=== PATIENT | male | born 1940 | race Caucasian/White ===

== ENCOUNTER → 2023-04-03 | Day surgery (SDC) | payer OTHER ==
[~2023-04-03] MED LIST: BSS (NA/CA/MG/K) BALANCED SALT SOLUTION OPHTH SOLN 15 ML BOTTLE ONE; CARBACHOL 0.01% INTRA-OCULAR 1.5 ML VIAL ONE; EPINEPHrine/PF 1 MG/1 ML (1:1,000) AMPULE ONE; LIDOCAINE 1% P/F 10 MG/ML VIAL ONE; NEO/POLYMYX B SULF/DEXAMETH OPHTHALMIC 5ML BOTTLE ONE; TETRACAINE 0.5% OPHTH SOLN 2 ML BOTTLE ONE
== END | disposition home or self-care (01) ==
LOC: FASU 08:21
PROVIDERS: ATTEND Ophthalmology
PROC: 08RK3JZ Replacement of Left Lens with Synthetic Substitute, Percutaneous Approach (ICD-10-PCS; principal; 2023-04-03)
DX: Z53.8 Procedure and treatment not carried out for other reasons (principal); H26.8 Other specified cataract

== ENCOUNTER 2023-06-10 15:03 | Inpatient (IN) | payer OTHER ==
[2023-06-10 16:05] VITALS: BMI 26.6
[2023-06-10] MEDS ORDERED: LIDOCAINE 5% TOPICAL PATCH TP ONE (16:27)
[2023-06-10] MEDS ORDERED: LIDOCAINE 5% TOPICAL PATCH ONE (16:44)
[2023-06-10] MEDS ORDERED: ACETAMINOPHEN 325 MG TABLET (FP) PO ONE (16:59)
[2023-06-10] MEDS ORDERED: MAG HYDROX/AL HYDROX/SIMETH 30 ML UNIT-DOSE CUP PO ONE (16:59)
[2023-06-10] MEDS ORDERED: ACETAMINOPHEN 325 MG TABLET (FP) ONE (17:05)
[2023-06-10] MEDS ORDERED: MAG HYDROX/AL HYDROX/SIMETH 30 ML UNIT-DOSE CUP ONE (17:06)
[2023-06-10 17:56] LABS: BASO % 0.8 % (0-2.0); EOS % 6.1 % (0-4.5); HEMOGLOBIN 9.6 GM/dL (11.7-16.9); LYMPH % 15.2 % (8-40); MCH 30.2 pg (25.7-33.7); MCHC 33.1 g/dl (32.0-35.9); MEAN CELL VOLUME 91.2 fl (80-96); MEAN PLT VOLUME 7.7 fl (7.5-11.1); MONO % 7.5 % (3.8-10.2); NEUT % 70.4 % (42.8-82.8); PLATELET COUNT 240 10^3/uL (134-434); RBC 3.18 M/mm3 (4.00-5.60); RDW 15.5 % (11.9-15.9)
[2023-06-10] MEDS ORDERED: MINERAL OIL ENEMA 133 ML ENEMA PR ONE (18:25)
[2023-06-10] MEDS ORDERED: POLYETHYLENE GLYCOL (HEALTHYLAX) 3350 17 GM PACKET PO STA (18:25)
[2023-06-10 18:26] LABS: CHLORIDE 109 mmol/L (98-107); POTASSIUM 4.5 mmol/L (3.5-5.1); SODIUM 137 mmol/L (136-145)
[2023-06-10 18:27] LABS: CALCIUM 8.2 mg/dL (8.5-10.1)
[2023-06-10 18:28] LABS: ALBUMIN 2.8 g/dl (3.4-5.0); ANION GAP 11 MMOL/L (8-16); BLOOD UREA NITROGEN 57.8 mg/dL (7-18); CO2 17 mmol/L (21-32); GLUCOSE,RANDOM 118 mg/dL (74-106)
[2023-06-10 18:30] LABS: MAGNESIUM 1.8 mg/dL (1.8-2.4)
[2023-06-10 18:31] LABS: CREATININE 4.3 mg/dL (0.55-1.3); SGOT/AST 11 U/L (15-37); SGPT/ALT 26 U/L (13-61)
[2023-06-10 18:32] LABS: BILIRUBIN,TOTAL < 0.1 mg/dL (0.2-1); TOT PROT 7.3 g/dl (6.4-8.2)
[2023-06-10 18:35] LABS: ALK PHOS 100 U/L (45-117)
[2023-06-10] MEDS ORDERED: POLYETHYLENE GLYCOL (HEALTHYLAX) 3350 17 GM PACKET ONE (18:48)
[2023-06-10 19:00] LABS: EPI CELLS 24 /uL (0-25.1); HYALINE CASTS 2 /uL (0-3.1); PH,URINE 5.5 (5.0-8.0); URINE APPEARANCE TURBID; URINE BACTERIA >9,000 /uL (0-1359); URINE BILIRUBIN NEGATIVE (NEGATIVE); URINE COLOR ORANGE; URINE GLUCOSE (UA) NEGATIVE (NEGATIVE); URINE KETONE NEGATIVE (NEGATIVE); URINE LEUK ESTERASE 3+ (NEGATIVE); URINE NITRITE NEGATIVE (NEGATIVE); URINE PROTEIN 3+ (NEGATIVE); URINE UROBILINOGEN 0.2 mg/dL (0.2-1.0); URINE WBC 8317 /uL (0-25.8)
[2023-06-10 19:18] LABS: URINE RBC 2472 /uL (0-23.9); YEAST NONE SEEN (NEGATIVE)
[2023-06-10] MEDS ORDERED: CEFTRIAXONE 1 GM in DEXTROSE 5%-WATER - 100 ML IVPB ONE (19:19)
[2023-06-10] MEDS ORDERED: CEFTRIAXONE 1 GM/50 ML BAG ONE (19:36)
[2023-06-10] MEDS ORDERED: FAMOTIDINE 20 MG/50 ML IVPB 20 MG/50 ML MG IVPB ONE ×2 (19:51→20:03)
[2023-06-10] MEDS ORDERED: cloNIDine HCL 0.1 MG TABLET PO ONE (19:51)
[2023-06-10] MEDS ORDERED: DEXAMETHASONE SOD PHOSPHATE 10 MG/1 ML VIAL IVPUSH ONE (19:51)
[2023-06-10] MEDS ORDERED: DEXAMETHASONE SOD PHOSPHATE 10 MG/1 ML VIAL ONE (20:03)
[2023-06-10] MEDS ORDERED: cloNIDine HCL 0.1 MG TABLET ONE (20:03)
[2023-06-11] MEDS ORDERED: FUROSEMIDE 40 MG TABLET (FP) PO SCH (02:48)
[2023-06-11] MEDS ORDERED: LIDOCAINE 5% TOPICAL PATCH TP SCH ×2 (02:49→07:32)
[2023-06-11] MEDS ORDERED: LIDOCAINE TP SCH (02:49)
[2023-06-11] MEDS ORDERED: POLYETHYLENE GLYCOL (HEALTHYLAX) 3350 17 GM PACKET PO SCH (02:49)
[2023-06-11] MEDS ORDERED: PATIENT'S OWN MEDICATION (NON-FORMULARY) (Diclofenac Sodium [Voltaren] 100 GM Gel..Gram.) TP SCH (02:50)
[2023-06-11] MEDS: NIFEdipine E.R 60 MG TABLET PO SCH ×3 (04:08→22:02)
[2023-06-11] MEDS: SODIUM ZIRCONIUM CYCLOSILICATE (LOKELMA) 5 GM PACKET PO SCH ×2 (04:08→11:18)
[2023-06-11] MEDS: cloNIDine HCL 0.1 MG TABLET PO SCH ×3 (04:09→22:00)
[2023-06-11] MEDS: BACLOFEN 10 MG TABLET (FP) PO SCH ×2 (04:09→11:18)
[2023-06-11] MEDS: DOCUSATE SODIUM 100 MG CAPSULE (FP) PO SCH ×2 (04:09→22:01)
[2023-06-11] MEDS: ATORVASTATIN CA 20 MG TABLET (FP) PO SCH ×2 (04:10→22:01)
[2023-06-11] MEDS: FINASTERIDE 5 MG TABLET (FP) PO SCH ×2 (04:10→11:19)
[2023-06-11] MEDS: PANTOPRAZOLE 20 MG TABLET PO SCH ×2 (04:10→11:19)
[2023-06-11] MEDS: LABETALOL HCL 100 MG TABLET (FP) PO SCH ×3 (04:10→22:02)
[2023-06-11] MEDS: BISACODYL 5 MG TABLET.DR (FP) PO SCH ×2 (04:10→11:18)
[2023-06-11] MEDS: VITAMIN B COMP W-C 1 EA TABLET (NEPHRO-VITE) PO SCH ×2 (04:10→11:18)
[2023-06-11] MEDS: ASPIRIN 81 MG CHEWABLE TABLETS PO SCH ×2 (04:11→11:17)
[2023-06-11] MEDS: ASCORBIC ACID 500 MG TABLET (FP) PO SCH ×2 (04:11→11:19)
[2023-06-11] MEDS ORDERED: HEPARIN NA (PORCINE) 5,000 UNITS/ML 1ML VIAL SQ SCH (06:00)
[2023-06-11] MEDS ORDERED: MAGNESIUM CITRATE 300 ML BOTTLE PO ONE (07:00)
[2023-06-11] MEDS: ARTIFICIAL TEARS (POLYVINYL ALCOHOL) OPTH DROPS OU SCH ×4 (07:35→22:00)
[2023-06-11] MEDS: BETHANECHOL CHLORIDE 10 MG TABLET PO SCH ×4 (07:35→22:30)
[2023-06-11] MEDS: AMMONIUM LACTATE 12% LOTION 225 GM BOTTLE TP SCH ×3 (07:37→22:01)
[2023-06-11] MEDS: FERROUS GLUCONATE 324 MG TAB (FP) PO SCH ×2 (07:37→11:46)
[2023-06-11] MEDS: NYSTATIN 100,000 UNIT/GM TOPICAL CREAM 15 GM TUBE TP SCH ×3 (07:37→22:03)
[2023-06-11] MEDS ORDERED: SODIUM CHLORIDE 1,000 ML IV SCH (07:45)
[2023-06-11] MEDS: CITALOPRAM HYDROBROMIDE 20 MG TABLET PO SCH (08:27)
[2023-06-11] MEDS: SENNOSIDES 8.6MG TABLET (FP) PO SCH ×2 (08:27→22:02)
[2023-06-11 09:43] LABS: POTASSIUM 5.1 mmol/L (3.5-5.1)
[2023-06-11 09:47] LABS: ALBUMIN 2.7 g/dl (3.4-5.0); BLOOD UREA NITROGEN 55.8 mg/dL (7-18); CALCIUM 8.4 mg/dL (8.5-10.1)
[2023-06-11 09:49] LABS: PHOSPHOROUS 4.5 mg/dL (2.5-4.9)
[2023-06-11 09:51] LABS: BILIRUBIN,TOTAL 0.2 mg/dL (0.2-1)
[2023-06-11 09:54] LABS: HEMATOCRIT 27.7 % (35.4-49); HEMOGLOBIN 9.3 GM/dL (11.7-16.9); MCH 30.6 pg (25.7-33.7); MCHC 33.5 g/dl (32.0-35.9); MEAN CELL VOLUME 91.5 fl (80-96); MEAN PLT VOLUME 7.6 fl (7.5-11.1); PLATELET COUNT 251 10^3/uL (134-434); RBC 3.03 M/mm3 (4.00-5.60); RDW 15.3 % (11.9-15.9); WHITE BLOOD COUNT 6.9 K/mm3 (4.0-10.0)
[2023-06-11] MEDS ORDERED: ENOXAPARIN NA (PORCINE) 40 MG/0.4 ML DISP.SYRIN SQ SCH (10:00)
[2023-06-11] MEDS: CEFTRIAXONE 1 GM in DEXTROSE 5%-WATER - 50 ML IVPB SCH (11:39)
[2023-06-11] MEDS: TAMSULOSIN HCL 0.4 MG CAP PO SCH (11:45)
[2023-06-11] MEDS: POLYETHYLENE GLYCOL (HEALTHYLAX) 3350 17 GM PACKET PO SCH ×2 (11:46→22:01)
[2023-06-11] MEDS: LIDOCAINE 5% TOPICAL PATCH TP SCH (11:46)
[2023-06-11] MEDS: predniSONE 20 MG TABLET (UD) PO SCH (15:21)
[2023-06-11] MEDS ORDERED: LIDOCAINE PATCH REMOVAL MC SCH (22:00)
[2023-06-11] MEDS: SODIUM BICARBONATE 650 MG TABLET PO SCH (22:01)
[2023-06-12] MEDS: BETHANECHOL CHLORIDE 10 MG TABLET PO SCH ×4 (06:12→21:56)
[2023-06-12] MEDS: ARTIFICIAL TEARS (POLYVINYL ALCOHOL) OPTH DROPS OU SCH ×3 (06:25→21:50)
[2023-06-12 08:07] LABS: BASO % 0.8 % (0-2.0); EOS % 1.1 % (0-4.5); HEMATOCRIT 27.5 % (35.4-49); LYMPH % 15.6 % (8-40); MCH 30.6 pg (25.7-33.7); MCHC 32.8 g/dl (32.0-35.9); MEAN CELL VOLUME 93.1 fl (80-96); MEAN PLT VOLUME 7.6 fl (7.5-11.1); MONO % 5.7 % (3.8-10.2); NEUT % 76.8 % (42.8-82.8); PLATELET COUNT 290 10^3/uL (134-434); RBC 2.96 M/mm3 (4.00-5.60); RDW 15.4 % (11.9-15.9); WHITE BLOOD COUNT 8.1 K/mm3 (4.0-10.0)
[2023-06-12 08:41] LABS: POTASSIUM 5.1 mmol/L (3.5-5.1)
[2023-06-12 08:51] LABS: ALBUMIN 2.7 g/dl (3.4-5.0); BLOOD UREA NITROGEN 56.2 mg/dL (7-18); CALCIUM 8.7 mg/dL (8.5-10.1); MAGNESIUM 2.4 mg/dL (1.8-2.4)
[2023-06-12 08:54] LABS: CREATININE 3.7 mg/dL (0.55-1.3)
[2023-06-12 08:55] LABS: BILIRUBIN,TOTAL 0.2 mg/dL (0.2-1); TOT PROT 7.3 g/dl (6.4-8.2)
[2023-06-12] MEDS: POLYETHYLENE GLYCOL (HEALTHYLAX) 3350 17 GM PACKET PO SCH ×2 (11:00→21:52)
[2023-06-12] MEDS: SODIUM ZIRCONIUM CYCLOSILICATE (LOKELMA) 5 GM PACKET PO SCH (11:00)
[2023-06-12] MEDS: LABETALOL HCL 100 MG TABLET (FP) PO SCH ×2 (11:00→21:54)
[2023-06-12] MEDS: ASCORBIC ACID 500 MG TABLET (FP) PO SCH (11:01)
[2023-06-12] MEDS: TAMSULOSIN HCL 0.4 MG CAP PO SCH (11:01)
[2023-06-12] MEDS: PANTOPRAZOLE 20 MG TABLET PO SCH (11:01)
[2023-06-12] MEDS: ASPIRIN 81 MG CHEWABLE TABLETS PO SCH (11:01)
[2023-06-12] MEDS: VITAMIN B COMP W-C 1 EA TABLET (NEPHRO-VITE) PO SCH (11:02)
[2023-06-12] MEDS: BACLOFEN 10 MG TABLET (FP) PO SCH (11:02)
[2023-06-12] MEDS: BISACODYL 5 MG TABLET.DR (FP) PO SCH (11:02)
[2023-06-12] MEDS: CITALOPRAM HYDROBROMIDE 20 MG TABLET PO SCH (11:02)
[2023-06-12] MEDS: cloNIDine HCL 0.1 MG TABLET PO SCH ×2 (11:02→21:51)
[2023-06-12] MEDS: NIFEdipine E.R 60 MG TABLET PO SCH ×2 (11:02→21:54)
[2023-06-12] MEDS: predniSONE 20 MG TABLET (UD) PO SCH (11:02)
[2023-06-12] MEDS: SODIUM BICARBONATE 650 MG TABLET PO SCH ×2 (11:03→21:56)
[2023-06-12] MEDS: FERROUS GLUCONATE 324 MG TAB (FP) PO SCH (11:03)
[2023-06-12] MEDS: CEFTRIAXONE 1 GM in DEXTROSE 5%-WATER - 50 ML IVPB SCH (11:04)
[2023-06-12] MEDS: FINASTERIDE 5 MG TABLET (FP) PO SCH (11:04)
[2023-06-12] MEDS: LIDOCAINE 5% TOPICAL PATCH TP SCH (11:05)
[2023-06-12] MEDS: NYSTATIN 100,000 UNIT/GM TOPICAL CREAM 15 GM TUBE TP SCH ×2 (11:08→21:53)
[2023-06-12] MEDS: AMMONIUM LACTATE 12% LOTION 225 GM BOTTLE TP SCH ×2 (11:08→21:52)
[2023-06-12] MEDS: ALBUTEROL SO4 2.5/IPRATROPIUM 0.5 INH SOL 3 ML VIAL.NEB. NEB PRN (12:12)
[2023-06-12] MEDS: DOCUSATE SODIUM 100 MG CAPSULE (FP) PO SCH (21:51)
[2023-06-12] MEDS: ATORVASTATIN CA 20 MG TABLET (FP) PO SCH (21:52)
[2023-06-12] MEDS ORDERED: PSYLLIUM 5.85 GM PACKET PO SCH (22:00)
[2023-06-12] MEDS: SENNOSIDES 8.6MG TABLET (FP) PO SCH (23:33)
[2023-06-13] MEDS: ARTIFICIAL TEARS (POLYVINYL ALCOHOL) OPTH DROPS OU SCH ×3 (05:53→21:25)
[2023-06-13] MEDS: BETHANECHOL CHLORIDE 10 MG TABLET PO SCH ×3 (06:05→21:28)
[2023-06-13 08:17] LABS: HEMATOCRIT 27.5 % (35.4-49); MCH 30.5 pg (25.7-33.7); MCHC 32.8 g/dl (32.0-35.9); MEAN PLT VOLUME 7.5 fl (7.5-11.1); PLATELET COUNT 283 10^3/uL (134-434); POTASSIUM 4.5 mmol/L (3.5-5.1); RBC 2.96 M/mm3 (4.00-5.60); RDW 15.3 % (11.9-15.9); WHITE BLOOD COUNT 9.6 K/mm3 (4.0-10.0)
[2023-06-13 08:22] LABS: ALBUMIN 2.7 g/dl (3.4-5.0); BLOOD UREA NITROGEN 56.8 mg/dL (7-18); CALCIUM 8.1 mg/dL (8.5-10.1); MAGNESIUM 2.1 mg/dL (1.8-2.4)
[2023-06-13 08:25] LABS: CREATININE 3.4 mg/dL (0.55-1.3); PHOSPHOROUS 3.7 mg/dL (2.5-4.9)
[2023-06-13 08:27] LABS: BILIRUBIN,TOTAL 0.2 mg/dL (0.2-1); TOT PROT 7.1 g/dl (6.4-8.2)
[2023-06-13] MEDS: TAMSULOSIN HCL 0.4 MG CAP PO SCH (08:44)
[2023-06-13] MEDS: PANTOPRAZOLE 20 MG TABLET PO SCH (09:00)
[2023-06-13] MEDS: LABETALOL HCL 100 MG TABLET (FP) PO SCH ×2 (09:01→21:27)
[2023-06-13] MEDS: FINASTERIDE 5 MG TABLET (FP) PO SCH (09:01)
[2023-06-13] MEDS: predniSONE 20 MG TABLET (UD) PO SCH (09:02)
[2023-06-13] MEDS: BISACODYL 5 MG TABLET.DR (FP) PO SCH (09:02)
[2023-06-13] MEDS: CITALOPRAM HYDROBROMIDE 20 MG TABLET PO SCH (09:02)
[2023-06-13] MEDS: SODIUM BICARBONATE 650 MG TABLET PO SCH ×2 (09:03→21:26)
[2023-06-13] MEDS: FERROUS GLUCONATE 324 MG TAB (FP) PO SCH (09:04)
[2023-06-13] MEDS: VITAMIN B COMP W-C 1 EA TABLET (NEPHRO-VITE) PO SCH (09:04)
[2023-06-13] MEDS: BACLOFEN 10 MG TABLET (FP) PO SCH (09:05)
[2023-06-13] MEDS: NIFEdipine E.R 60 MG TABLET PO SCH ×2 (09:05→21:26)
[2023-06-13] MEDS: ASCORBIC ACID 500 MG TABLET (FP) PO SCH (09:06)
[2023-06-13] MEDS: cloNIDine HCL 0.1 MG TABLET PO SCH ×2 (09:06→21:26)
[2023-06-13] MEDS: SODIUM ZIRCONIUM CYCLOSILICATE (LOKELMA) 5 GM PACKET PO SCH (09:07)
[2023-06-13] MEDS: POLYETHYLENE GLYCOL (HEALTHYLAX) 3350 17 GM PACKET PO SCH ×3 (09:07→21:39)
[2023-06-13] MEDS: AMMONIUM LACTATE 12% LOTION 225 GM BOTTLE TP SCH ×2 (09:08→21:29)
[2023-06-13] MEDS: CEFTRIAXONE 1 GM in DEXTROSE 5%-WATER - 50 ML IVPB SCH (09:08)
[2023-06-13] MEDS: LIDOCAINE 5% TOPICAL PATCH TP SCH (09:12)
[2023-06-13] MEDS: CLOTRIMAZOLE/BETAMET DIPROP 15 GM TUBE TP SCH ×3 (09:12→21:30)
[2023-06-13] MEDS: NYSTATIN 100,000 UNIT/GM TOPICAL CREAM 15 GM TUBE TP SCH ×2 (09:13→21:30)
[2023-06-13] MEDS: ASPIRIN 81 MG CHEWABLE TABLETS PO SCH (09:18)
[2023-06-13] MEDS: SENNOSIDES 8.6MG TABLET (FP) PO SCH ×3 (09:38→21:39)
[2023-06-13 09:50] LABS: ANISOCYTOSIS 0; HELMET CELLS 0; HOWELL-JOLLY BODIES 0; MACROCYTOSIS 0; OVALOCYTE 0; ROULEAU 0; SICKELED CELLS 0; TARGET CELLS 0; TEAR DROP CELLS 0; TOXIC GRANULATION 0
[2023-06-13] MEDS: PIPERACILLIN/TAZOB 2.25 GM 2.25 GM in DEXTROSE 5%-WATER - 50 ML IVPB SCH ×4 (11:02→21:24)
[2023-06-13] MEDS: SALICYLIC ACID TP SCH (19:04)
[2023-06-13] MEDS: ATORVASTATIN CA 20 MG TABLET (FP) PO SCH (21:27)
[2023-06-13 22:09] LABS: ANTIGLOMERULAR BASEMENT MEN.AB <0.2 units (0.0-0.9)
[2023-06-14] MEDS: PIPERACILLIN/TAZOB 2.25 GM 2.25 GM in DEXTROSE 5%-WATER - 50 ML IVPB SCH (02:03)
[2023-06-14] MEDS: ARTIFICIAL TEARS (POLYVINYL ALCOHOL) OPTH DROPS OU SCH ×3 (06:16→22:04)
[2023-06-14] MEDS: CLOTRIMAZOLE/BETAMET DIPROP 15 GM TUBE TP SCH ×3 (06:17→22:06)
[2023-06-14] MEDS: BETHANECHOL CHLORIDE 10 MG TABLET PO SCH ×3 (06:17→22:08)
[2023-06-14 08:03] LABS: HEMATOCRIT 25.6 % (35.4-49); HEMOGLOBIN 8.6 GM/dL (11.7-16.9); MCH 30.6 pg (25.7-33.7); MCHC 33.6 g/dl (32.0-35.9); MEAN CELL VOLUME 91.1 fl (80-96); MEAN PLT VOLUME 6.9 fl (7.5-11.1); PLATELET COUNT 279 10^3/uL (134-434); RBC 2.81 M/mm3 (4.00-5.60); RDW 15.4 % (11.9-15.9); WHITE BLOOD COUNT 11.2 K/mm3 (4.0-10.0)
[2023-06-14 08:55] LABS: CHLORIDE 107 mmol/L (98-107); POTASSIUM 4.5 mmol/L (3.5-5.1); SODIUM 136 mmol/L (136-145)
[2023-06-14 08:57] LABS: ALBUMIN 2.7 g/dl (3.4-5.0); ANION GAP 8 MMOL/L (8-16); BLOOD UREA NITROGEN 61.1 mg/dL (7-18); CO2 21 mmol/L (21-32); GLUCOSE,RANDOM 95 mg/dL (74-106); MAGNESIUM 2.1 mg/dL (1.8-2.4)
[2023-06-14 09:01] LABS: CREATININE 3.4 mg/dL (0.55-1.3); PHOSPHOROUS 3.5 mg/dL (2.5-4.9); SGOT/AST 13 U/L (15-37); SGPT/ALT 30 U/L (13-61)
[2023-06-14 09:02] LABS: BILIRUBIN,TOTAL < 0.1 mg/dL (0.2-1); TOT PROT 6.8 g/dl (6.4-8.2)
[2023-06-14 09:03] LABS: ALK PHOS 76 U/L (45-117)
[2023-06-14] MEDS: TAMSULOSIN HCL 0.4 MG CAP PO SCH (09:03)
[2023-06-14] MEDS: cloNIDine HCL 0.1 MG TABLET PO SCH ×2 (09:10→22:05)
[2023-06-14] MEDS: ASPIRIN 81 MG CHEWABLE TABLETS PO SCH (09:10)
[2023-06-14] MEDS: LABETALOL HCL 100 MG TABLET (FP) PO SCH ×2 (09:10→22:07)
[2023-06-14] MEDS: BISACODYL 5 MG TABLET.DR (FP) PO SCH (09:10)
[2023-06-14] MEDS: FINASTERIDE 5 MG TABLET (FP) PO SCH (09:11)
[2023-06-14] MEDS: predniSONE 20 MG TABLET (UD) PO SCH (09:11)
[2023-06-14] MEDS: LIDOCAINE 5% TOPICAL PATCH TP SCH (09:11)
[2023-06-14] MEDS: SODIUM BICARBONATE 650 MG TABLET PO SCH ×2 (09:11→22:07)
[2023-06-14] MEDS: ASCORBIC ACID 500 MG TABLET (FP) PO SCH (09:11)
[2023-06-14] MEDS: NIFEdipine E.R 60 MG TABLET PO SCH ×2 (09:11→22:08)
[2023-06-14] MEDS: CITALOPRAM HYDROBROMIDE 20 MG TABLET PO SCH (09:11)
[2023-06-14] MEDS: BACLOFEN 10 MG TABLET (FP) PO SCH (09:11)
[2023-06-14] MEDS: PANTOPRAZOLE 20 MG TABLET PO SCH (09:11)
[2023-06-14] MEDS: FERROUS GLUCONATE 324 MG TAB (FP) PO SCH (09:12)
[2023-06-14] MEDS: SODIUM ZIRCONIUM CYCLOSILICATE (LOKELMA) 5 GM PACKET PO SCH (09:12)
[2023-06-14] MEDS: POLYETHYLENE GLYCOL (HEALTHYLAX) 3350 17 GM PACKET PO SCH ×2 (09:12→22:05)
[2023-06-14] MEDS: VITAMIN B COMP W-C 1 EA TABLET (NEPHRO-VITE) PO SCH (09:14)
[2023-06-14] MEDS: AMMONIUM LACTATE 12% LOTION 225 GM BOTTLE TP SCH ×2 (09:25→22:05)
[2023-06-14] MEDS: NYSTATIN 100,000 UNIT/GM TOPICAL CREAM 15 GM TUBE TP SCH ×2 (09:25→22:07)
[2023-06-14 09:33] LABS: ANISOCYTOSIS 1+; MACROCYTOSIS 0
[2023-06-14] MEDS: ALBUTEROL SO4 2.5/IPRATROPIUM 0.5 INH SOL 3 ML VIAL.NEB. NEB PRN (18:15)
[2023-06-14] MEDS: ATORVASTATIN CA 20 MG TABLET (FP) PO SCH (22:06)
[2023-06-14] MEDS: SENNOSIDES 8.6MG TABLET (FP) PO SCH (22:08)
[2023-06-15] MEDS: CLOTRIMAZOLE/BETAMET DIPROP 15 GM TUBE TP SCH ×3 (05:55→22:50)
[2023-06-15] MEDS: ARTIFICIAL TEARS (POLYVINYL ALCOHOL) OPTH DROPS OU SCH ×3 (05:55→22:50)
[2023-06-15] MEDS: BETHANECHOL CHLORIDE 10 MG TABLET PO SCH ×3 (05:56→22:49)
[2023-06-15] MEDS: TAMSULOSIN HCL 0.4 MG CAP PO SCH (08:02)
[2023-06-15] MEDS: LABETALOL HCL 100 MG TABLET (FP) PO SCH ×2 (09:15→22:48)
[2023-06-15] MEDS: SODIUM BICARBONATE 650 MG TABLET PO SCH ×2 (09:15→22:48)
[2023-06-15] MEDS: FINASTERIDE 5 MG TABLET (FP) PO SCH (09:15)
[2023-06-15] MEDS: NIFEdipine E.R 60 MG TABLET PO SCH ×2 (09:15→22:48)
[2023-06-15] MEDS: VITAMIN B COMP W-C 1 EA TABLET (NEPHRO-VITE) PO SCH (09:15)
[2023-06-15] MEDS: PANTOPRAZOLE 20 MG TABLET PO SCH (09:16)
[2023-06-15] MEDS: BISACODYL 5 MG TABLET.DR (FP) PO SCH (09:16)
[2023-06-15] MEDS: cloNIDine HCL 0.1 MG TABLET PO SCH ×2 (09:16→22:48)
[2023-06-15] MEDS: ASPIRIN 81 MG CHEWABLE TABLETS PO SCH (09:16)
[2023-06-15] MEDS: CITALOPRAM HYDROBROMIDE 20 MG TABLET PO SCH (09:16)
[2023-06-15] MEDS: predniSONE 20 MG TABLET (UD) PO SCH (09:16)
[2023-06-15] MEDS: BACLOFEN 10 MG TABLET (FP) PO SCH (09:17)
[2023-06-15] MEDS: ASCORBIC ACID 500 MG TABLET (FP) PO SCH (09:17)
[2023-06-15] MEDS: POLYETHYLENE GLYCOL (HEALTHYLAX) 3350 17 GM PACKET PO SCH ×2 (09:18→22:49)
[2023-06-15] MEDS: SODIUM ZIRCONIUM CYCLOSILICATE (LOKELMA) 5 GM PACKET PO SCH (09:18)
[2023-06-15] MEDS: LIDOCAINE 5% TOPICAL PATCH TP SCH (09:18)
[2023-06-15] MEDS: FERROUS GLUCONATE 324 MG TAB (FP) PO SCH (09:19)
[2023-06-15 09:47] LABS: HEMOGLOBIN 8.9 GM/dL (11.7-16.9); MCH 30.4 pg (25.7-33.7); MCHC 32.9 g/dl (32.0-35.9); MEAN CELL VOLUME 92.4 fl (80-96); MEAN PLT VOLUME 7.6 fl (7.5-11.1); PLATELET COUNT 290 10^3/uL (134-434); RBC 2.92 M/mm3 (4.00-5.60); RDW 15.1 % (11.9-15.9); WHITE BLOOD COUNT 12.2 K/mm3 (4.0-10.0)
[2023-06-15] MEDS: NYSTATIN 100,000 UNIT/GM TOPICAL CREAM 15 GM TUBE TP SCH ×2 (09:55→22:50)
[2023-06-15] MEDS: AMMONIUM LACTATE 12% LOTION 225 GM BOTTLE TP SCH ×2 (09:55→22:50)
[2023-06-15 10:17] LABS: POTASSIUM 4.2 mmol/L (3.5-5.1)
[2023-06-15 10:19] LABS: ALBUMIN 2.8 g/dl (3.4-5.0); CALCIUM 8.4 mg/dL (8.5-10.1); MAGNESIUM 2.1 mg/dL (1.8-2.4)
[2023-06-15 10:20] LABS: BLOOD UREA NITROGEN 68.4 mg/dL (7-18)
[2023-06-15 10:22] LABS: PHOSPHOROUS 4.3 mg/dL (2.5-4.9)
[2023-06-15 10:24] LABS: BILIRUBIN,TOTAL 0.2 mg/dL (0.2-1)
[2023-06-15 10:26] LABS: CREATININE 3.6 mg/dL (0.55-1.3)
[2023-06-15 10:31] LABS: ANISOCYTOSIS 1+; MACROCYTOSIS 0
[2023-06-15] MEDS ORDERED: PIPERACILLIN/TAZOBACTAM 2.25 GM VIAL IVPB ONE (17:41)
[2023-06-15] MEDS: PIPERACILLIN/TAZOB 2.25 GM 2.25 GM in DEXTROSE 5%-WATER - 50 ML IVPB SCH (18:08)
[2023-06-15] MEDS: ATORVASTATIN CA 20 MG TABLET (FP) PO SCH (22:48)
[2023-06-15] MEDS: SENNOSIDES 8.6MG TABLET (FP) PO SCH (22:48)
[2023-06-15] MEDS: HEPARIN NA (PORCINE) 5,000 UNITS/ML 1ML VIAL SQ SCH (22:49)
[2023-06-15] MEDS ORDERED: ACETAMINOPHEN 325 MG TABLET (FP) PO ONE (23:31)
[2023-06-16] MEDS: PIPERACILLIN/TAZOB 2.25 GM 2.25 GM in DEXTROSE 5%-WATER - 50 ML IVPB SCH ×3 (02:49→17:47)
[2023-06-16] MEDS: BETHANECHOL CHLORIDE 10 MG TABLET PO SCH ×3 (06:58→22:39)
[2023-06-16] MEDS: CLOTRIMAZOLE/BETAMET DIPROP 15 GM TUBE TP SCH ×3 (06:59→22:46)
[2023-06-16] MEDS: ARTIFICIAL TEARS (POLYVINYL ALCOHOL) OPTH DROPS OU SCH ×3 (06:59→22:47)
[2023-06-16 08:59] LABS: HEMATOCRIT 25.7 % (35.4-49); HEMOGLOBIN 8.5 GM/dL (11.7-16.9); MCH 30.6 pg (25.7-33.7); MCHC 33.1 g/dl (32.0-35.9); MEAN CELL VOLUME 92.3 fl (80-96); MEAN PLT VOLUME 7.3 fl (7.5-11.1); PLATELET COUNT 302 10^3/uL (134-434); RBC 2.79 M/mm3 (4.00-5.60); RDW 15.3 % (11.9-15.9); WHITE BLOOD COUNT 12.3 K/mm3 (4.0-10.0)
[2023-06-16 09:15] LABS: POTASSIUM 4.9 mmol/L (3.5-5.1)
[2023-06-16 09:18] LABS: ALBUMIN 2.8 g/dl (3.4-5.0); BLOOD UREA NITROGEN 66.5 mg/dL (7-18)
[2023-06-16 09:19] LABS: MAGNESIUM 2.1 mg/dL (1.8-2.4)
[2023-06-16 09:22] LABS: CREATININE 3.7 mg/dL (0.55-1.3); PHOSPHOROUS 4.6 mg/dL (2.5-4.9)
[2023-06-16 09:23] LABS: BILIRUBIN,TOTAL 0.4 mg/dL (0.2-1); TOT PROT 6.7 g/dl (6.4-8.2)
[2023-06-16 10:04] LABS: ANISOCYTOSIS 0; MACROCYTOSIS 1+
[2023-06-16] MEDS: LIDOCAINE 5% TOPICAL PATCH TP SCH (10:51)
[2023-06-16] MEDS: POLYETHYLENE GLYCOL (HEALTHYLAX) 3350 17 GM PACKET PO SCH ×2 (10:51→22:39)
[2023-06-16] MEDS: SODIUM ZIRCONIUM CYCLOSILICATE (LOKELMA) 5 GM PACKET PO SCH (10:51)
[2023-06-16] MEDS: BACLOFEN 10 MG TABLET (FP) PO SCH (10:52)
[2023-06-16] MEDS: BISACODYL 5 MG TABLET.DR (FP) PO SCH (10:52)
[2023-06-16] MEDS: NIFEdipine E.R 60 MG TABLET PO SCH ×2 (10:52→22:39)
[2023-06-16] MEDS: LABETALOL HCL 100 MG TABLET (FP) PO SCH ×2 (10:52→22:39)
[2023-06-16] MEDS: VITAMIN B COMP W-C 1 EA TABLET (NEPHRO-VITE) PO SCH (10:52)
[2023-06-16] MEDS: CITALOPRAM HYDROBROMIDE 20 MG TABLET PO SCH (10:53)
[2023-06-16] MEDS: ASPIRIN 81 MG CHEWABLE TABLETS PO SCH (10:54)
[2023-06-16] MEDS: ASCORBIC ACID 500 MG TABLET (FP) PO SCH (10:54)
[2023-06-16] MEDS: SODIUM BICARBONATE 650 MG TABLET PO SCH ×2 (10:54→22:39)
[2023-06-16] MEDS: FINASTERIDE 5 MG TABLET (FP) PO SCH (10:54)
[2023-06-16] MEDS: cloNIDine HCL 0.1 MG TABLET PO SCH ×2 (10:54→22:39)
[2023-06-16] MEDS: PANTOPRAZOLE 20 MG TABLET PO SCH (10:55)
[2023-06-16] MEDS: TAMSULOSIN HCL 0.4 MG CAP PO SCH (10:55)
[2023-06-16] MEDS: predniSONE 20 MG TABLET (UD) PO SCH (10:55)
[2023-06-16] MEDS: HEPARIN NA (PORCINE) 5,000 UNITS/ML 1ML VIAL SQ SCH ×2 (11:02→22:40)
[2023-06-16] MEDS: AMMONIUM LACTATE 12% LOTION 225 GM BOTTLE TP SCH ×2 (11:06→22:47)
[2023-06-16] MEDS: NYSTATIN 100,000 UNIT/GM TOPICAL CREAM 15 GM TUBE TP SCH ×2 (11:06→22:46)
[2023-06-16] MEDS: FERROUS GLUCONATE 324 MG TAB (FP) PO SCH (11:18)
[2023-06-16] MEDS: SIMETHICONE 80 MG TAB.CHEW (FP) PO PRN (20:20)
[2023-06-16] MEDS: ATORVASTATIN CA 20 MG TABLET (FP) PO SCH (22:39)
[2023-06-16] MEDS: SENNOSIDES 8.6MG TABLET (FP) PO SCH (22:39)
[2023-06-17] MEDS: PIPERACILLIN/TAZOB 2.25 GM 2.25 GM in DEXTROSE 5%-WATER - 50 ML IVPB SCH ×2 (02:56→09:17)
[2023-06-17] MEDS: SIMETHICONE 80 MG TAB.CHEW (FP) PO PRN (03:09)
[2023-06-17] MEDS: ARTIFICIAL TEARS (POLYVINYL ALCOHOL) OPTH DROPS OU SCH ×3 (06:33→22:02)
[2023-06-17] MEDS: CLOTRIMAZOLE/BETAMET DIPROP 15 GM TUBE TP SCH ×3 (06:34→22:01)
[2023-06-17] MEDS: BETHANECHOL CHLORIDE 10 MG TABLET PO SCH ×3 (07:08→22:00)
[2023-06-17] MEDS: TAMSULOSIN HCL 0.4 MG CAP PO SCH (08:44)
[2023-06-17] MEDS: HEPARIN NA (PORCINE) 5,000 UNITS/ML 1ML VIAL SQ SCH ×2 (09:11→22:00)
[2023-06-17] MEDS: cloNIDine HCL 0.1 MG TABLET PO SCH ×2 (09:13→22:00)
[2023-06-17] MEDS: ASPIRIN 81 MG CHEWABLE TABLETS PO SCH (09:13)
[2023-06-17] MEDS: CITALOPRAM HYDROBROMIDE 20 MG TABLET PO SCH (09:14)
[2023-06-17] MEDS: LABETALOL HCL 100 MG TABLET (FP) PO SCH ×2 (09:14→22:01)
[2023-06-17] MEDS: BACLOFEN 10 MG TABLET (FP) PO SCH (09:15)
[2023-06-17] MEDS: BISACODYL 5 MG TABLET.DR (FP) PO SCH (09:15)
[2023-06-17] MEDS: PANTOPRAZOLE 20 MG TABLET PO SCH (09:15)
[2023-06-17] MEDS: ASCORBIC ACID 500 MG TABLET (FP) PO SCH (09:15)
[2023-06-17] MEDS: predniSONE 20 MG TABLET (UD) PO SCH (09:15)
[2023-06-17] MEDS: FINASTERIDE 5 MG TABLET (FP) PO SCH (09:15)
[2023-06-17] MEDS: NIFEdipine E.R 60 MG TABLET PO SCH ×2 (09:15→22:00)
[2023-06-17] MEDS: POLYETHYLENE GLYCOL (HEALTHYLAX) 3350 17 GM PACKET PO SCH ×2 (09:16→21:59)
[2023-06-17] MEDS: FERROUS GLUCONATE 324 MG TAB (FP) PO SCH (09:16)
[2023-06-17] MEDS: VITAMIN B COMP W-C 1 EA TABLET (NEPHRO-VITE) PO SCH (09:16)
[2023-06-17] MEDS: SODIUM ZIRCONIUM CYCLOSILICATE (LOKELMA) 5 GM PACKET PO SCH (09:16)
[2023-06-17] MEDS: SODIUM BICARBONATE 650 MG TABLET PO SCH ×2 (09:16→22:00)
[2023-06-17] MEDS: LIDOCAINE 5% TOPICAL PATCH TP SCH (09:17)
[2023-06-17 09:34] LABS: HEMATOCRIT 25.3 % (35.4-49); HEMOGLOBIN 8.1 GM/dL (11.7-16.9); MCH 29.9 pg (25.7-33.7); MCHC 32.3 g/dl (32.0-35.9); MEAN CELL VOLUME 92.7 fl (80-96); MEAN PLT VOLUME 7.3 fl (7.5-11.1); PLATELET COUNT 314 10^3/uL (134-434); RBC 2.73 M/mm3 (4.00-5.60); RDW 14.9 % (11.9-15.9); WHITE BLOOD COUNT 15.4 K/mm3 (4.0-10.0)
[2023-06-17] MEDS: AMMONIUM LACTATE 12% LOTION 225 GM BOTTLE TP SCH ×2 (09:56→22:02)
[2023-06-17] MEDS: NYSTATIN 100,000 UNIT/GM TOPICAL CREAM 15 GM TUBE TP SCH ×2 (09:57→22:01)
[2023-06-17 10:06] LABS: POTASSIUM 4.7 mmol/L (3.5-5.1)
[2023-06-17 10:08] LABS: ALBUMIN 2.6 g/dl (3.4-5.0); BLOOD UREA NITROGEN 91.1 mg/dL (7-18); CALCIUM 7.9 mg/dL (8.5-10.1)
[2023-06-17 10:10] LABS: MAGNESIUM 1.9 mg/dL (1.8-2.4)
[2023-06-17 10:11] LABS: CREATININE 3.5 mg/dL (0.55-1.3)
[2023-06-17 10:12] LABS: PHOSPHOROUS 3.8 mg/dL (2.5-4.9)
[2023-06-17 10:13] LABS: BILIRUBIN,TOTAL 0.2 mg/dL (0.2-1); TOT PROT 6.5 g/dl (6.4-8.2)
[2023-06-17 11:42] LABS: ANISOCYTOSIS 0; MACROCYTOSIS 1+
[2023-06-17 17:08] LABS: ATYPICAL pANCA <1:20 titer (Neg:<1:20); C-ANCA <1:20 titer (Neg:<1:20)
[2023-06-17] MEDS: AMOX TR/POT CLAV 250MG/125MG TABLETS PO SCH (17:27)
[2023-06-17] MEDS: SENNOSIDES 8.6MG TABLET (FP) PO SCH (22:00)
[2023-06-17] MEDS: ATORVASTATIN CA 20 MG TABLET (FP) PO SCH (22:02)
[2023-06-18] MEDS: ARTIFICIAL TEARS (POLYVINYL ALCOHOL) OPTH DROPS OU SCH ×3 (06:25→21:09)
[2023-06-18] MEDS: BETHANECHOL CHLORIDE 10 MG TABLET PO SCH ×3 (06:26→21:22)
[2023-06-18] MEDS: CLOTRIMAZOLE/BETAMET DIPROP 15 GM TUBE TP SCH ×3 (06:26→21:19)
[2023-06-18] MEDS: AMOX TR/POT CLAV 250MG/125MG TABLETS PO SCH (09:11)
[2023-06-18] MEDS: TAMSULOSIN HCL 0.4 MG CAP PO SCH (09:12)
[2023-06-18] MEDS: LIDOCAINE 5% TOPICAL PATCH TP SCH (10:21)
[2023-06-18] MEDS: POLYETHYLENE GLYCOL (HEALTHYLAX) 3350 17 GM PACKET PO SCH ×2 (10:24→21:16)
[2023-06-18] MEDS: SODIUM ZIRCONIUM CYCLOSILICATE (LOKELMA) 5 GM PACKET PO SCH (10:24)
[2023-06-18] MEDS: LABETALOL HCL 100 MG TABLET (FP) PO SCH ×2 (10:24→21:15)
[2023-06-18] MEDS: predniSONE 20 MG TABLET (UD) PO SCH (10:24)
[2023-06-18] MEDS: ASPIRIN 81 MG CHEWABLE TABLETS PO SCH (10:24)
[2023-06-18] MEDS: CITALOPRAM HYDROBROMIDE 20 MG TABLET PO SCH (10:25)
[2023-06-18] MEDS: cloNIDine HCL 0.1 MG TABLET PO SCH ×2 (10:25→21:14)
[2023-06-18] MEDS: PANTOPRAZOLE 20 MG TABLET PO SCH (10:25)
[2023-06-18] MEDS: VITAMIN B COMP W-C 1 EA TABLET (NEPHRO-VITE) PO SCH (10:25)
[2023-06-18] MEDS: SODIUM BICARBONATE 650 MG TABLET PO SCH ×2 (10:25→21:14)
[2023-06-18] MEDS: BISACODYL 5 MG TABLET.DR (FP) PO SCH (10:25)
[2023-06-18] MEDS: BACLOFEN 10 MG TABLET (FP) PO SCH (10:25)
[2023-06-18] MEDS: FINASTERIDE 5 MG TABLET (FP) PO SCH (10:25)
[2023-06-18] MEDS: ASCORBIC ACID 500 MG TABLET (FP) PO SCH (10:26)
[2023-06-18] MEDS: HEPARIN NA (PORCINE) 5,000 UNITS/ML 1ML VIAL SQ SCH ×2 (10:26→21:16)
[2023-06-18] MEDS: NIFEdipine E.R 60 MG TABLET PO SCH ×2 (10:26→21:15)
[2023-06-18] MEDS: FERROUS GLUCONATE 324 MG TAB (FP) PO SCH (10:28)
[2023-06-18] MEDS: SIMETHICONE 80 MG TAB.CHEW (FP) PO PRN (10:33)
[2023-06-18] MEDS: AMMONIUM LACTATE 12% LOTION 225 GM BOTTLE TP SCH ×2 (10:38→21:16)
[2023-06-18 10:39] LABS: HEMATOCRIT 24.7 % (35.4-49); HEMOGLOBIN 8.1 GM/dL (11.7-16.9); MCH 30.2 pg (25.7-33.7); MCHC 32.6 g/dl (32.0-35.9); MEAN CELL VOLUME 92.9 fl (80-96); MEAN PLT VOLUME 7.7 fl (7.5-11.1); PLATELET COUNT 281 10^3/uL (134-434); RBC 2.66 M/mm3 (4.00-5.60); WHITE BLOOD COUNT 12.9 K/mm3 (4.0-10.0)
[2023-06-18] MEDS: NYSTATIN 100,000 UNIT/GM TOPICAL CREAM 15 GM TUBE TP SCH ×2 (10:40→21:19)
[2023-06-18] MEDS: diphenhydrAMINE HCL 25 MG CAPSULE (FP) PO PRN (11:04)
[2023-06-18] MEDS: PIPERACILLIN/TAZOB 2.25 GM 2.25 GM in DEXTROSE 5%-WATER - 50 ML IVPB SCH ×2 (11:08→17:00)
[2023-06-18 11:42] LABS: ANISOCYTOSIS 0; MACROCYTOSIS 1+
[2023-06-18 11:53] LABS: POTASSIUM 4.5 mmol/L (3.5-5.1)
[2023-06-18 12:07] LABS: CALCIUM 8.3 mg/dL (8.5-10.1)
[2023-06-18 12:08] LABS: ALBUMIN 2.7 g/dl (3.4-5.0); BLOOD UREA NITROGEN 86.4 mg/dL (7-18)
[2023-06-18 12:11] LABS: CREATININE 3.4 mg/dL (0.55-1.3); PHOSPHOROUS 3.9 mg/dL (2.5-4.9)
[2023-06-18 12:12] LABS: BILIRUBIN,TOTAL 0.4 mg/dL (0.2-1); TOT PROT 6.5 g/dl (6.4-8.2)
[2023-06-18] MEDS: ATORVASTATIN CA 20 MG TABLET (FP) PO SCH (21:14)
[2023-06-18] MEDS: SENNOSIDES 8.6MG TABLET (FP) PO SCH (21:15)
[2023-06-19] MEDS: PIPERACILLIN/TAZOB 2.25 GM 2.25 GM in DEXTROSE 5%-WATER - 50 ML IVPB SCH ×3 (01:20→19:11)
[2023-06-19] MEDS: diphenhydrAMINE HCL 25 MG CAPSULE (FP) PO PRN (01:23)
[2023-06-19] MEDS: CLOTRIMAZOLE/BETAMET DIPROP 15 GM TUBE TP SCH ×3 (06:46→22:28)
[2023-06-19] MEDS: ARTIFICIAL TEARS (POLYVINYL ALCOHOL) OPTH DROPS OU SCH ×3 (06:46→22:28)
[2023-06-19] MEDS: BETHANECHOL CHLORIDE 10 MG TABLET PO SCH ×3 (06:47→22:26)
[2023-06-19 09:35] LABS: EPI CELLS 26 /uL (0-25.1); HYALINE CASTS 0 /uL (0-3.1); PH,URINE 5.5 (5.0-8.0); URINE APPEARANCE CLEAR; URINE BACTERIA 23 /uL (0-1359); URINE BILIRUBIN NEGATIVE (NEGATIVE); URINE COLOR YELLOW; URINE GLUCOSE (UA) NEGATIVE (NEGATIVE); URINE KETONE NEGATIVE (NEGATIVE); URINE LEUK ESTERASE 1+ (NEGATIVE); URINE NITRITE NEGATIVE (NEGATIVE); URINE PROTEIN 2+ (NEGATIVE); URINE RBC 2355 /uL (0-23.9); URINE UROBILINOGEN 0.2 mg/dL (0.2-1.0); URINE WBC 185 /uL (0-25.8)
[2023-06-19] MEDS: LIDOCAINE 5% TOPICAL PATCH TP SCH (09:42)
[2023-06-19] MEDS: BACLOFEN 10 MG TABLET (FP) PO SCH (09:43)
[2023-06-19] MEDS: TAMSULOSIN HCL 0.4 MG CAP PO SCH (09:43)
[2023-06-19] MEDS: LABETALOL HCL 100 MG TABLET (FP) PO SCH ×2 (09:43→22:26)
[2023-06-19] MEDS: ASCORBIC ACID 500 MG TABLET (FP) PO SCH (09:44)
[2023-06-19] MEDS: CITALOPRAM HYDROBROMIDE 20 MG TABLET PO SCH (09:45)
[2023-06-19] MEDS: SODIUM BICARBONATE 650 MG TABLET PO SCH ×2 (09:45→22:25)
[2023-06-19] MEDS: VITAMIN B COMP W-C 1 EA TABLET (NEPHRO-VITE) PO SCH (09:46)
[2023-06-19] MEDS: cloNIDine HCL 0.1 MG TABLET PO SCH ×2 (09:46→22:25)
[2023-06-19] MEDS: NIFEdipine E.R 60 MG TABLET PO SCH ×2 (09:46→22:25)
[2023-06-19] MEDS: BISACODYL 5 MG TABLET.DR (FP) PO SCH (09:46)
[2023-06-19] MEDS: FINASTERIDE 5 MG TABLET (FP) PO SCH (09:46)
[2023-06-19] MEDS: PANTOPRAZOLE 20 MG TABLET PO SCH (09:46)
[2023-06-19] MEDS: ASPIRIN 81 MG CHEWABLE TABLETS PO SCH (09:46)
[2023-06-19] MEDS: POLYETHYLENE GLYCOL (HEALTHYLAX) 3350 17 GM PACKET PO SCH ×2 (09:47→22:26)
[2023-06-19] MEDS: HEPARIN NA (PORCINE) 5,000 UNITS/ML 1ML VIAL SQ SCH (09:47)
[2023-06-19] MEDS: SODIUM ZIRCONIUM CYCLOSILICATE (LOKELMA) 5 GM PACKET PO SCH (09:47)
[2023-06-19] MEDS: NYSTATIN 100,000 UNIT/GM TOPICAL CREAM 15 GM TUBE TP SCH ×2 (09:55→22:27)
[2023-06-19] MEDS: FERROUS GLUCONATE 324 MG TAB (FP) PO SCH (09:55)
[2023-06-19] MEDS: AMMONIUM LACTATE 12% LOTION 225 GM BOTTLE TP SCH ×2 (09:56→22:27)
[2023-06-19] MEDS ORDERED: predniSONE 10 MG TABLET (UD) PO ONE (10:00)
[2023-06-19 10:03] LABS: HEMATOCRIT 24.3 % (35.4-49); MCH 30.2 pg (25.7-33.7); MCHC 32.9 g/dl (32.0-35.9); MEAN CELL VOLUME 91.9 fl (80-96); MEAN PLT VOLUME 7.5 fl (7.5-11.1); PLATELET COUNT 301 10^3/uL (134-434); RBC 2.64 M/mm3 (4.00-5.60); RDW 15.3 % (11.9-15.9); WHITE BLOOD COUNT 13.5 K/mm3 (4.0-10.0)
[2023-06-19 10:23] LABS: POTASSIUM 4.7 mmol/L (3.5-5.1)
[2023-06-19 10:25] LABS: ALBUMIN 2.9 g/dl (3.4-5.0); CALCIUM 8.2 mg/dL (8.5-10.1)
[2023-06-19 10:26] LABS: BLOOD UREA NITROGEN 82.9 mg/dL (7-18); MAGNESIUM 2.1 mg/dL (1.8-2.4)
[2023-06-19 10:28] LABS: CREATININE 3.4 mg/dL (0.55-1.3)
[2023-06-19 10:29] LABS: PHOSPHOROUS 4.5 mg/dL (2.5-4.9)
[2023-06-19 10:30] LABS: BILIRUBIN,TOTAL 0.2 mg/dL (0.2-1)
[2023-06-19 11:07] LABS: ANISOCYTOSIS 0; HELMET CELLS 0; HOWELL-JOLLY BODIES 0; MACROCYTOSIS 0; OVALOCYTE 0; ROULEAU 0; SICKELED CELLS 0; TARGET CELLS 0; TEAR DROP CELLS 0; TOXIC GRANULATION 0
[2023-06-19] MEDS: ALBUTEROL SO4 2.5/IPRATROPIUM 0.5 INH SOL 3 ML VIAL.NEB. NEB PRN (20:18)
[2023-06-19] MEDS: SIMETHICONE 80 MG TAB.CHEW (FP) PO PRN (20:30)
[2023-06-19] MEDS: ATORVASTATIN CA 20 MG TABLET (FP) PO SCH (22:25)
[2023-06-19] MEDS: SENNOSIDES 8.6MG TABLET (FP) PO SCH (22:26)
[2023-06-19] MEDS ORDERED: HEPARIN NA (PORCINE) 5,000 UNITS/ML 1ML VIAL SQ SCH (23:10)
[2023-06-20] MEDS: PIPERACILLIN/TAZOB 2.25 GM 2.25 GM in DEXTROSE 5%-WATER - 50 ML IVPB SCH ×3 (02:58→17:35)
[2023-06-20] MEDS: BETHANECHOL CHLORIDE 10 MG TABLET PO SCH ×2 (06:57→21:41)
[2023-06-20] MEDS: CLOTRIMAZOLE/BETAMET DIPROP 15 GM TUBE TP SCH ×3 (06:58→21:55)
[2023-06-20] MEDS: ARTIFICIAL TEARS (POLYVINYL ALCOHOL) OPTH DROPS OU SCH ×3 (06:58→21:45)
[2023-06-20 09:05] LABS: HEMATOCRIT 23.7 % (35.4-49); HEMOGLOBIN 7.9 GM/dL (11.7-16.9); MCH 30.7 pg (25.7-33.7); MCHC 33.1 g/dl (32.0-35.9); MEAN CELL VOLUME 92.9 fl (80-96); MEAN PLT VOLUME 7.7 fl (7.5-11.1); PLATELET COUNT 285 10^3/uL (134-434); RBC 2.56 M/mm3 (4.00-5.60); RDW 15.4 % (11.9-15.9); WHITE BLOOD COUNT 13.2 K/mm3 (4.0-10.0)
[2023-06-20 09:16] LABS: POTASSIUM 4.8 mmol/L (3.5-5.1)
[2023-06-20 09:19] LABS: CALCIUM 7.9 mg/dL (8.5-10.1)
[2023-06-20 09:20] LABS: ALBUMIN 2.9 g/dl (3.4-5.0); MAGNESIUM 2.2 mg/dL (1.8-2.4)
[2023-06-20 09:23] LABS: CREATININE 3.6 mg/dL (0.55-1.3); PHOSPHOROUS 4.5 mg/dL (2.5-4.9)
[2023-06-20 09:24] LABS: TOT PROT 6.6 g/dl (6.4-8.2)
[2023-06-20 09:25] LABS: BILIRUBIN,TOTAL 0.3 mg/dL (0.2-1)
[2023-06-20 10:13] LABS: ANISOCYTOSIS 0; HELMET CELLS 0; HOWELL-JOLLY BODIES 0; MACROCYTOSIS 0; OVALOCYTE 0; ROULEAU 0; SICKELED CELLS 0; TARGET CELLS 0; TEAR DROP CELLS 0; TOXIC GRANULATION 0
[2023-06-20] MEDS: LIDOCAINE 5% TOPICAL PATCH TP SCH (11:00)
[2023-06-20] MEDS: ASPIRIN 81 MG CHEWABLE TABLETS PO SCH (12:12)
[2023-06-20] MEDS: cloNIDine HCL 0.1 MG TABLET PO SCH ×2 (12:13→21:40)
[2023-06-20] MEDS: CITALOPRAM HYDROBROMIDE 20 MG TABLET PO SCH (12:14)
[2023-06-20] MEDS: BISACODYL 5 MG TABLET.DR (FP) PO SCH (12:15)
[2023-06-20] MEDS: BACLOFEN 10 MG TABLET (FP) PO SCH (12:16)
[2023-06-20] MEDS: POLYETHYLENE GLYCOL (HEALTHYLAX) 3350 17 GM PACKET PO SCH ×2 (12:16→21:40)
[2023-06-20] MEDS: FERROUS GLUCONATE 324 MG TAB (FP) PO SCH (12:16)
[2023-06-20] MEDS: TAMSULOSIN HCL 0.4 MG CAP PO SCH (12:16)
[2023-06-20] MEDS: SODIUM ZIRCONIUM CYCLOSILICATE (LOKELMA) 5 GM PACKET PO SCH (12:17)
[2023-06-20] MEDS: LABETALOL HCL 100 MG TABLET (FP) PO SCH ×2 (12:17→21:39)
[2023-06-20] MEDS: VITAMIN B COMP W-C 1 EA TABLET (NEPHRO-VITE) PO SCH (12:17)
[2023-06-20] MEDS: NIFEdipine E.R 60 MG TABLET PO SCH ×2 (12:18→21:39)
[2023-06-20] MEDS: PANTOPRAZOLE 20 MG TABLET PO SCH (12:18)
[2023-06-20] MEDS: FINASTERIDE 5 MG TABLET (FP) PO SCH (12:18)
[2023-06-20] MEDS: SODIUM BICARBONATE 650 MG TABLET PO SCH ×2 (12:19→21:40)
[2023-06-20] MEDS: AMMONIUM LACTATE 12% LOTION 225 GM BOTTLE TP SCH ×2 (12:19→21:45)
[2023-06-20] MEDS: ASCORBIC ACID 500 MG TABLET (FP) PO SCH (12:19)
[2023-06-20] MEDS: NYSTATIN 100,000 UNIT/GM TOPICAL CREAM 15 GM TUBE TP SCH ×2 (12:20→21:45)
[2023-06-20] MEDS ORDERED: LIDOCAINE HCL/PF 2% SDV 5ML VIAL ONE (14:43)
[2023-06-20] MEDS ORDERED: PROPOFOL 20 ML ONE (14:44)
[2023-06-20] MEDS ORDERED: MIDAZOLAM HCL 2 MG/2 ML SINGLE DOSE VIAL ONE (14:44)
[2023-06-20] MEDS ORDERED: DEXAMETHASONE SOD PHOSPHATE 4 MG/1 ML VIAL ONE (15:27)
[2023-06-20] MEDS ORDERED: IOHEXOL 300 MG/ML INFUS..BTL IV ONE (15:32)
[2023-06-20] MEDS ORDERED: ONDANSETRON 4 MG/2 ML VIAL ONE (15:44)
[2023-06-20] MEDS ORDERED: KETOROLAC TROMETHAMINE 30 MG/1 ML VIAL ONE (15:44)
[2023-06-20] MEDS ORDERED: ONDANSETRON 4 MG/2 ML VIAL IVPUSH PRN (15:59)
[2023-06-20] MEDS ORDERED: PROMETHAZINE HCL 25 MG/1 ML VIAL IVPB PRN (15:59)
[2023-06-20] MEDS ORDERED: LACTATED RINGERS SOLUTION 1,000 ML IV SCH (16:00)
[2023-06-20] MEDS ORDERED: diphenhydrAMINE HCL 25 MG CAPSULE (FP) PO PRN (16:09)
[2023-06-20] MEDS ORDERED: ALBUTEROL SO4 2.5/IPRATROPIUM 0.5 INH SOL 3 ML VIAL.NEB. NEB PRN (16:09)
[2023-06-20] MEDS ORDERED: SIMETHICONE 80 MG TAB.CHEW (FP) PO PRN (16:09)
[2023-06-20] MEDS: ATORVASTATIN CA 20 MG TABLET (FP) PO SCH (21:39)
[2023-06-20] MEDS: SENNOSIDES 8.6MG TABLET (FP) PO SCH (21:40)
[2023-06-20] MEDS: LIDOCAINE PATCH REMOVAL MC SCH (21:54)
[2023-06-20] MEDS ORDERED: HEPARIN NA (PORCINE) 5,000 UNITS/ML 1ML VIAL SQ SCH (22:00)
[2023-06-21] MEDS: PIPERACILLIN/TAZOB 2.25 GM 2.25 GM in DEXTROSE 5%-WATER - 50 ML IVPB SCH ×3 (02:02→17:33)
[2023-06-21] MEDS: ARTIFICIAL TEARS (POLYVINYL ALCOHOL) OPTH DROPS OU SCH ×3 (06:06→22:00)
[2023-06-21] MEDS: CLOTRIMAZOLE/BETAMET DIPROP 15 GM TUBE TP SCH ×3 (06:07→22:01)
[2023-06-21] MEDS: BETHANECHOL CHLORIDE 10 MG TABLET PO SCH ×3 (06:08→22:17)
[2023-06-21] MEDS: BACLOFEN 10 MG TABLET (FP) PO SCH (09:14)
[2023-06-21] MEDS: FINASTERIDE 5 MG TABLET (FP) PO SCH (09:14)
[2023-06-21] MEDS: CITALOPRAM HYDROBROMIDE 20 MG TABLET PO SCH (09:14)
[2023-06-21] MEDS: BISACODYL 5 MG TABLET.DR (FP) PO SCH (09:15)
[2023-06-21] MEDS: TAMSULOSIN HCL 0.4 MG CAP PO SCH (09:15)
[2023-06-21] MEDS: cloNIDine HCL 0.1 MG TABLET PO SCH ×2 (09:15→21:59)
[2023-06-21] MEDS: NIFEdipine E.R 60 MG TABLET PO SCH ×2 (09:15→21:59)
[2023-06-21] MEDS: ASCORBIC ACID 500 MG TABLET (FP) PO SCH (09:16)
[2023-06-21] MEDS: LABETALOL HCL 100 MG TABLET (FP) PO SCH ×2 (09:16→21:59)
[2023-06-21] MEDS: ASPIRIN 81 MG CHEWABLE TABLETS PO SCH (09:16)
[2023-06-21] MEDS: SODIUM BICARBONATE 650 MG TABLET PO SCH ×2 (09:16→21:59)
[2023-06-21] MEDS: PANTOPRAZOLE 20 MG TABLET PO SCH (09:16)
[2023-06-21] MEDS: VITAMIN B COMP W-C 1 EA TABLET (NEPHRO-VITE) PO SCH (09:17)
[2023-06-21] MEDS: SODIUM ZIRCONIUM CYCLOSILICATE (LOKELMA) 5 GM PACKET PO SCH (09:17)
[2023-06-21] MEDS: FERROUS GLUCONATE 324 MG TAB (FP) PO SCH (09:17)
[2023-06-21] MEDS: POLYETHYLENE GLYCOL (HEALTHYLAX) 3350 17 GM PACKET PO SCH ×2 (09:17→22:00)
[2023-06-21] MEDS: LIDOCAINE 5% TOPICAL PATCH TP SCH (09:18)
[2023-06-21] MEDS: AMMONIUM LACTATE 12% LOTION 225 GM BOTTLE TP SCH ×2 (09:20→22:01)
[2023-06-21] MEDS: NYSTATIN 100,000 UNIT/GM TOPICAL CREAM 15 GM TUBE TP SCH ×2 (09:20→22:17)
[2023-06-21 10:52] LABS: HEMATOCRIT 20.1 % (35.4-49); MCH 30.1 pg (25.7-33.7); MCHC 32.6 g/dl (32.0-35.9); MEAN CELL VOLUME 92.2 fl (80-96); MEAN PLT VOLUME 7.6 fl (7.5-11.1); PLATELET COUNT 198 10^3/uL (134-434); RBC 2.18 M/mm3 (4.00-5.60); RDW 15.5 % (11.9-15.9)
[2023-06-21 11:19] LABS: HEMOGLOBIN 6.5 GM/dL (11.7-16.9); WHITE BLOOD COUNT 43.8 K/mm3 (4.0-10.0)
[2023-06-21 11:26] LABS: POTASSIUM 5.5 mmol/L (3.5-5.1)
[2023-06-21 11:42] LABS: CALCIUM 7.9 mg/dL (8.5-10.1)
[2023-06-21 11:43] LABS: ALBUMIN 2.5 g/dl (3.4-5.0)
[2023-06-21 11:47] LABS: MCHC 31.8 g/dl (32.0-35.9); MEAN CELL VOLUME 94.4 fl (80-96); MEAN PLT VOLUME 7.7 fl (7.5-11.1); PLATELET COUNT 189 10^3/uL (134-434); RBC 2.01 M/mm3 (4.00-5.60); RDW 15.4 % (11.9-15.9)
[2023-06-21 11:53] LABS: WHITE BLOOD COUNT 39.5 K/mm3 (4.0-10.0)
[2023-06-21 12:32] LABS: BILIRUBIN,TOTAL 0.4 mg/dL (0.2-1); CREATININE 4.5 mg/dL (0.55-1.3); PHOSPHOROUS 5.7 mg/dL (2.5-4.9); TOT PROT 5.8 g/dl (6.4-8.2)
[2023-06-21 13:14] LABS: ANISOCYTOSIS 2+; MACROCYTOSIS 0; OVALOCYTE 2+
[2023-06-21 14:30] LABS: ANISOCYTOSIS 2+; MACROCYTOSIS 0; OVALOCYTE 2+
[2023-06-21] MEDS: SODIUM CHLORIDE 0.45% 1,000 ML IV SCH (15:28)
[2023-06-21 18:51] VITALS: RESP 18
[2023-06-21] MEDS: SENNOSIDES 8.6MG TABLET (FP) PO SCH (21:58)
[2023-06-21] MEDS: ATORVASTATIN CA 20 MG TABLET (FP) PO SCH (21:59)
[2023-06-21] MEDS: LIDOCAINE PATCH REMOVAL MC SCH (22:12)
[2023-06-22] MEDS: PIPERACILLIN/TAZOB 2.25 GM 2.25 GM in DEXTROSE 5%-WATER - 50 ML IVPB SCH ×3 (01:01→17:22)
[2023-06-22 01:04] LABS: HEMATOCRIT 26.9 % (35.4-49); HEMOGLOBIN 8.9 GM/dL (11.7-16.9); MCH 28.6 pg (25.7-33.7); MCHC 32.9 g/dl (32.0-35.9); MEAN CELL VOLUME 86.9 fl (80-96); MEAN PLT VOLUME 7.5 fl (7.5-11.1); PLATELET COUNT 162 10^3/uL (134-434); WHITE BLOOD COUNT 26.1 K/mm3 (4.0-10.0)
[2023-06-22 04:33] LABS: ANISOCYTOSIS 2+; MACROCYTOSIS 0
[2023-06-22] MEDS: BETHANECHOL CHLORIDE 10 MG TABLET PO SCH ×4 (05:48→21:29)
[2023-06-22] MEDS: ARTIFICIAL TEARS (POLYVINYL ALCOHOL) OPTH DROPS OU SCH ×3 (05:48→21:35)
[2023-06-22] MEDS: CLOTRIMAZOLE/BETAMET DIPROP 15 GM TUBE TP SCH ×3 (05:49→21:34)
[2023-06-22] MEDS ORDERED: PIPERACILLIN/TAZOBACTAM 2.25 GM VIAL IVPB ONE (10:24)
[2023-06-22 10:27] LABS: HEMATOCRIT 27.3 % (35.4-49); HEMOGLOBIN 9.4 GM/dL (11.7-16.9); MCH 30.6 pg (25.7-33.7); MCHC 34.4 g/dl (32.0-35.9); MEAN CELL VOLUME 89.1 fl (80-96); MEAN PLT VOLUME 7.4 fl (7.5-11.1); PLATELET COUNT 162 10^3/uL (134-434); RBC 3.07 M/mm3 (4.00-5.60); RDW 19.5 % (11.9-15.9); WHITE BLOOD COUNT 22.6 K/mm3 (4.0-10.0)
[2023-06-22] MEDS: PANTOPRAZOLE 20 MG TABLET PO SCH (10:28)
[2023-06-22] MEDS: cloNIDine HCL 0.1 MG TABLET PO SCH ×2 (10:28→21:29)
[2023-06-22] MEDS: BACLOFEN 10 MG TABLET (FP) PO SCH (10:28)
[2023-06-22] MEDS: NIFEdipine E.R 60 MG TABLET PO SCH ×2 (10:28→21:30)
[2023-06-22] MEDS: TAMSULOSIN HCL 0.4 MG CAP PO SCH (10:28)
[2023-06-22] MEDS: CITALOPRAM HYDROBROMIDE 20 MG TABLET PO SCH (10:28)
[2023-06-22] MEDS: SODIUM BICARBONATE 650 MG TABLET PO SCH ×2 (10:31→21:30)
[2023-06-22] MEDS: POLYETHYLENE GLYCOL (HEALTHYLAX) 3350 17 GM PACKET PO SCH ×2 (10:31→21:31)
[2023-06-22] MEDS: VITAMIN B COMP W-C 1 EA TABLET (NEPHRO-VITE) PO SCH (10:31)
[2023-06-22] MEDS: ASPIRIN 81 MG CHEWABLE TABLETS PO SCH (10:31)
[2023-06-22] MEDS: ASCORBIC ACID 500 MG TABLET (FP) PO SCH (10:31)
[2023-06-22] MEDS: BISACODYL 5 MG TABLET.DR (FP) PO SCH (10:31)
[2023-06-22] MEDS: FINASTERIDE 5 MG TABLET (FP) PO SCH (10:31)
[2023-06-22] MEDS: LABETALOL HCL 100 MG TABLET (FP) PO SCH ×2 (10:32→21:29)
[2023-06-22] MEDS: AMMONIUM LACTATE 12% LOTION 225 GM BOTTLE TP SCH ×2 (10:38→22:20)
[2023-06-22] MEDS: LIDOCAINE 5% TOPICAL PATCH TP SCH (10:38)
[2023-06-22] MEDS: NYSTATIN 100,000 UNIT/GM TOPICAL CREAM 15 GM TUBE TP SCH ×2 (10:39→21:34)
[2023-06-22] MEDS: FERROUS GLUCONATE 324 MG TAB (FP) PO SCH (10:39)
[2023-06-22] MEDS: SODIUM CHLORIDE 0.45% 1,000 ML IV SCH ×3 (10:40→17:22)
[2023-06-22 10:47] LABS: BLOOD UREA NITROGEN 83.7 mg/dL (7-18); CALCIUM 7.9 mg/dL (8.5-10.1)
[2023-06-22 10:48] LABS: ALBUMIN 2.6 g/dl (3.4-5.0)
[2023-06-22 10:49] LABS: MAGNESIUM 2.1 mg/dL (1.8-2.4)
[2023-06-22 10:51] LABS: CREATININE 4.6 mg/dL (0.55-1.3); PHOSPHOROUS 5.1 mg/dL (2.5-4.9)
[2023-06-22 10:52] LABS: BILIRUBIN,TOTAL 0.5 mg/dL (0.2-1); TOT PROT 6.3 g/dl (6.4-8.2)
[2023-06-22] MEDS: SODIUM ZIRCONIUM CYCLOSILICATE (LOKELMA) 5 GM PACKET PO SCH (13:15)
[2023-06-22] MEDS: ATORVASTATIN CA 20 MG TABLET (FP) PO SCH (21:29)
[2023-06-22] MEDS: SENNOSIDES 8.6MG TABLET (FP) PO SCH (21:29)
[2023-06-22] MEDS: LIDOCAINE PATCH REMOVAL MC SCH (21:43)
[2023-06-23] MEDS: PIPERACILLIN/TAZOB 2.25 GM 2.25 GM in DEXTROSE 5%-WATER - 50 ML IVPB SCH ×3 (01:21→17:14)
[2023-06-23] MEDS: BETHANECHOL CHLORIDE 10 MG TABLET PO SCH ×3 (05:55→21:37)
[2023-06-23] MEDS: CLOTRIMAZOLE/BETAMET DIPROP 15 GM TUBE TP SCH ×3 (05:56→21:33)
[2023-06-23] MEDS: ARTIFICIAL TEARS (POLYVINYL ALCOHOL) OPTH DROPS OU SCH ×3 (05:56→21:33)
[2023-06-23] MEDS: SODIUM CHLORIDE 0.45% 1,000 ML IV SCH (07:21)
[2023-06-23] MEDS: TAMSULOSIN HCL 0.4 MG CAP PO SCH (08:23)
[2023-06-23 09:12] LABS: BASO % 0.8 % (0-2.0); EOS % 5.1 % (0-4.5); HEMATOCRIT 27.3 % (35.4-49); LYMPH % 10.2 % (8-40); MCH 29.3 pg (25.7-33.7); MCHC 33.1 g/dl (32.0-35.9); MEAN CELL VOLUME 88.5 fl (80-96); MEAN PLT VOLUME 7.8 fl (7.5-11.1); NEUT % 75.9 % (42.8-82.8); PLATELET COUNT 160 10^3/uL (134-434); RBC 3.08 M/mm3 (4.00-5.60); RDW 19.1 % (11.9-15.9); WHITE BLOOD COUNT 15.6 K/mm3 (4.0-10.0)
[2023-06-23] MEDS: CITALOPRAM HYDROBROMIDE 20 MG TABLET PO SCH (09:18)
[2023-06-23] MEDS: LABETALOL HCL 100 MG TABLET (FP) PO SCH ×2 (09:18→21:32)
[2023-06-23] MEDS: NIFEdipine E.R 60 MG TABLET PO SCH ×2 (09:18→21:32)
[2023-06-23] MEDS: VITAMIN B COMP W-C 1 EA TABLET (NEPHRO-VITE) PO SCH (09:19)
[2023-06-23] MEDS: ASPIRIN 81 MG CHEWABLE TABLETS PO SCH (09:19)
[2023-06-23] MEDS: cloNIDine HCL 0.1 MG TABLET PO SCH ×2 (09:19→21:33)
[2023-06-23] MEDS: BISACODYL 5 MG TABLET.DR (FP) PO SCH (09:20)
[2023-06-23] MEDS: PANTOPRAZOLE 20 MG TABLET PO SCH (09:20)
[2023-06-23] MEDS: POLYETHYLENE GLYCOL (HEALTHYLAX) 3350 17 GM PACKET PO SCH ×2 (09:20→21:33)
[2023-06-23] MEDS: BACLOFEN 10 MG TABLET (FP) PO SCH (09:20)
[2023-06-23] MEDS: SODIUM BICARBONATE 650 MG TABLET PO SCH ×2 (09:20→21:32)
[2023-06-23] MEDS: ASCORBIC ACID 500 MG TABLET (FP) PO SCH (09:20)
[2023-06-23] MEDS: SODIUM ZIRCONIUM CYCLOSILICATE (LOKELMA) 5 GM PACKET PO SCH (09:20)
[2023-06-23] MEDS: FERROUS GLUCONATE 324 MG TAB (FP) PO SCH (09:21)
[2023-06-23] MEDS: FINASTERIDE 5 MG TABLET (FP) PO SCH (09:21)
[2023-06-23] MEDS: NYSTATIN 100,000 UNIT/GM TOPICAL CREAM 15 GM TUBE TP SCH ×2 (09:27→21:33)
[2023-06-23] MEDS: AMMONIUM LACTATE 12% LOTION 225 GM BOTTLE TP SCH ×2 (09:27→21:33)
[2023-06-23 09:34] LABS: POTASSIUM 4.7 mmol/L (3.5-5.1)
[2023-06-23 09:41] LABS: BLOOD UREA NITROGEN 71.5 mg/dL (7-18); CALCIUM 7.3 mg/dL (8.5-10.1); MAGNESIUM 2.1 mg/dL (1.8-2.4)
[2023-06-23 09:42] LABS: ALBUMIN 2.6 g/dl (3.4-5.0); PHOSPHOROUS 4.8 mg/dL (2.5-4.9)
[2023-06-23 09:44] LABS: BILIRUBIN,TOTAL 0.4 mg/dL (0.2-1); CREATININE 4.6 mg/dL (0.55-1.3); TOT PROT 6.2 g/dl (6.4-8.2)
[2023-06-23] MEDS: LIDOCAINE 5% TOPICAL PATCH TP SCH (10:17)
[2023-06-23] MEDS: SENNOSIDES 8.6MG TABLET (FP) PO SCH (21:32)
[2023-06-23] MEDS: ATORVASTATIN CA 20 MG TABLET (FP) PO SCH (21:32)
[2023-06-23] MEDS: LIDOCAINE PATCH REMOVAL MC SCH (21:33)
[2023-06-24] MEDS: PIPERACILLIN/TAZOB 2.25 GM 2.25 GM in DEXTROSE 5%-WATER - 50 ML IVPB SCH ×3 (01:04→17:06)
[2023-06-24] MEDS: SODIUM CHLORIDE 0.45% 1,000 ML IV SCH ×2 (05:42→11:23)
[2023-06-24] MEDS: CLOTRIMAZOLE/BETAMET DIPROP 15 GM TUBE TP SCH ×2 (05:43→14:49)
[2023-06-24] MEDS: ARTIFICIAL TEARS (POLYVINYL ALCOHOL) OPTH DROPS OU SCH ×2 (05:43→14:42)
[2023-06-24] MEDS: BETHANECHOL CHLORIDE 10 MG TABLET PO SCH ×2 (05:43→14:35)
[2023-06-24] MEDS: TAMSULOSIN HCL 0.4 MG CAP PO SCH (08:32)
[2023-06-24 08:43] VITALS: TEMP 98.1
[2023-06-24 11:10] LABS: HEMATOCRIT 28.3 % (35.4-49); HEMOGLOBIN 9.7 GM/dL (11.7-16.9); MCH 29.8 pg (25.7-33.7); MCHC 34.4 g/dl (32.0-35.9); MEAN CELL VOLUME 86.6 fl (80-96); PLATELET COUNT 160 10^3/uL (134-434); RBC 3.27 M/mm3 (4.00-5.60); RDW 18.6 % (11.9-15.9); WHITE BLOOD COUNT 12.1 K/mm3 (4.0-10.0)
[2023-06-24] MEDS: ASCORBIC ACID 500 MG TABLET (FP) PO SCH (11:19)
[2023-06-24] MEDS: VITAMIN B COMP W-C 1 EA TABLET (NEPHRO-VITE) PO SCH (11:19)
[2023-06-24] MEDS: POLYETHYLENE GLYCOL (HEALTHYLAX) 3350 17 GM PACKET PO SCH (11:19)
[2023-06-24] MEDS: CITALOPRAM HYDROBROMIDE 20 MG TABLET PO SCH (11:19)
[2023-06-24] MEDS: LABETALOL HCL 100 MG TABLET (FP) PO SCH (11:19)
[2023-06-24] MEDS: NIFEdipine E.R 60 MG TABLET PO SCH (11:20)
[2023-06-24] MEDS: cloNIDine HCL 0.1 MG TABLET PO SCH (11:20)
[2023-06-24] MEDS: BACLOFEN 10 MG TABLET (FP) PO SCH (11:20)
[2023-06-24] MEDS: ASPIRIN 81 MG CHEWABLE TABLETS PO SCH (11:20)
[2023-06-24] MEDS: SODIUM BICARBONATE 650 MG TABLET PO SCH (11:20)
[2023-06-24] MEDS: LIDOCAINE 5% TOPICAL PATCH TP SCH (11:20)
[2023-06-24] MEDS: FINASTERIDE 5 MG TABLET (FP) PO SCH (11:20)
[2023-06-24] MEDS: BISACODYL 5 MG TABLET.DR (FP) PO SCH (11:20)
[2023-06-24] MEDS: PANTOPRAZOLE 20 MG TABLET PO SCH (11:20)
[2023-06-24] MEDS: SODIUM ZIRCONIUM CYCLOSILICATE (LOKELMA) 5 GM PACKET PO SCH (11:21)
[2023-06-24] MEDS: AMMONIUM LACTATE 12% LOTION 225 GM BOTTLE TP SCH (11:22)
[2023-06-24] MEDS: FERROUS GLUCONATE 324 MG TAB (FP) PO SCH (11:22)
[2023-06-24 11:33] LABS: ANISOCYTOSIS 0; HELMET CELLS 0; HOWELL-JOLLY BODIES 0; MACROCYTOSIS 0; OVALOCYTE 0; POTASSIUM 4.6 mmol/L (3.5-5.1); ROULEAU 0; SICKELED CELLS 0; TARGET CELLS 0; TEAR DROP CELLS 0; TOXIC GRANULATION 0
[2023-06-24] MEDS: NYSTATIN 100,000 UNIT/GM TOPICAL CREAM 15 GM TUBE TP SCH (11:36)
[2023-06-24 11:45] LABS: CALCIUM 7.5 mg/dL (8.5-10.1)
[2023-06-24 11:46] LABS: ALBUMIN 2.7 g/dl (3.4-5.0)
[2023-06-24 11:49] LABS: BLOOD UREA NITROGEN 68.1 mg/dL (7-18); PHOSPHOROUS 4.2 mg/dL (2.5-4.9)
[2023-06-24 11:50] LABS: CREATININE 4.4 mg/dL (0.55-1.3)
[2023-06-24 11:51] LABS: BILIRUBIN,TOTAL 0.4 mg/dL (0.2-1)
[2023-06-24 11:54] LABS: TOT PROT 6.4 g/dl (6.4-8.2)
[2023-06-24 15:26] VITALS: BP 185/91; PULSE 67
== END 2023-06-24 17:50 | DRG 660 ==
LOC: JER 15:03 → JERBED 06-11 00:49 → J6S 06-11 02:28
PROVIDERS: ADMIT Internal Medicine; ATTEND Internal Medicine
PROC: 0TP98DZ Removal of Intraluminal Device from Ureter, Via Natural or Artificial Opening Endoscopic (ICD-10-PCS; 2023-06-20)
PROC: 0TJB8ZZ Inspection of Bladder, Via Natural or Artificial Opening Endoscopic (ICD-10-PCS; 2023-06-20)
PROC: 0TP98DZ Removal of Intraluminal Device from Ureter, Via Natural or Artificial Opening Endoscopic (ICD-10-PCS; principal; 2023-06-20 14:30)
PROC: 0T778DZ Dilation of Left Ureter with Intraluminal Device, Via Natural or Artificial Opening Endoscopic (ICD-10-PCS; 2023-06-20 14:30)
PROC: 30233N1 Transfusion of Nonautologous Red Blood Cells into Peripheral Vein, Percutaneous Approach (ICD-10-PCS; 2023-06-21)
DX: N13.6 Pyonephrosis (principal); D62 Acute posthemorrhagic anemia; G81.94 Hemiplegia, unspecified affecting left nondominant side; K56.7 Ileus, unspecified; E87.20 Acidosis, unspecified; Z85.46 Personal history of malignant neoplasm of prostate; N40.0 Benign prostatic hyperplasia without lower urinary tract symptoms; K21.9 Gastro-esophageal reflux disease without esophagitis; E78.5 Hyperlipidemia, unspecified; B37.2 Candidiasis of skin and nail; I12.9 Hypertensive chronic kidney disease with stage 1 through stage 4 chronic kidney disease, or unspecified chronic kidney disease; N18.4 Chronic kidney disease, stage 4 (severe); N31.9 Neuromuscular dysfunction of bladder, unspecified; R21 Rash and other nonspecific skin eruption; N17.9 Acute kidney failure, unspecified; F03.90 Unspecified dementia, unspecified severity, without behavioral disturbance, psychotic disturbance, mood disturbance, and anxiety; L30.4 Erythema intertrigo; L27.0 Generalized skin eruption due to drugs and medicaments taken internally; T36.8X5A Adverse effect of other systemic antibiotics, initial encounter; N28.1 Cyst of kidney, acquired; B95.2 Enterococcus as the cause of diseases classified elsewhere; K59.00 Constipation, unspecified; D72.823 Leukemoid reaction; E87.5 Hyperkalemia
CPT/HCPCS: 36415; 36430; 71045-TC-FY; 74018-TC-FY; 74176-TC; 76000-TC-FY; 76775-TC; 76856-TC; 80053; 81003; 82272; 82436; 82570; 82728; 82962; 83516; 83520; 83540; 83550; 83605; 83735; 83935; 83970; 84100; 84133; 84156; 84300; 85025; 85027; 85045; 86038; 86160; 86225; 86235; 86256; 86850; 86900; 86901; 86922; 87040; 87086; 87186; 87635; 93005; 93010; 94640; 94760; 97116-GP; 99285-25; C2617; J0475; J1100; J1644; P9058